=== PATIENT | female | born 1975 | race Caucasian/White ===

== ENCOUNTER 2018-06-05 20:23 | Emergency (ER) | payer OTHER, MEDICAID ==
[~2018-06-05] VITALS: Ht 157.5 cm; Wt 103.0 kg
[2018-06-05 21:18] VITALS: BP 148/78
[2018-06-05] MEDS ORDERED: cefTRIAXone SOD 1,000 MG VL IM ONE (21:30)
[2018-06-05] MEDS ORDERED: KETOROLAC TROMETH 30 MG/ML 1ML VIAL IM ONE (21:30)
[2018-06-05] MEDS ORDERED: LACTULOSE 20Gm/30ML SOLN PO ONE (21:45)
== END 2018-06-05 21:58 | disposition home or self-care (01) ==
LOC: ER 20:23
DX: N76.0 Acute vaginitis (principal); Z88.6 Allergy status to analgesic agent; Z88.0 Allergy status to penicillin; Z91.040 Latex allergy status
CPT/HCPCS: 96372; 99284; J0696; J1885